=== PATIENT | male | born 1960 | race Caucasian/White ===

== ENCOUNTER → 2024-03-23 | Outpatient (CLI) | payer OTHER, SELFPAY ==
[2024-03-23 14:33] LABS: Basophils # (Auto) 0.1 Thou/mm3 (0.0-0.2); Basophils % (Auto) 1 % (0-2.5); Eosinophils # (Auto) 0.2 Thou/mm3 (0.0-0.5); Eosinophils % (Auto) 2 % (0-10); Hematocrit 43.1 % (41.0-53.0); Hemoglobin 14.9 g/dL (13.5-16.0); Immature Granulocytes % (Auto) 0 % (0-0); Immature Granulocytes Auto 0.01 Thou/mm3 (0.00-0.00); Lymphocytes # (Auto) 1.6 Thou/mm3 (1.0-4.8); Lymphocytes % (Auto) 19 % (10-50); Mean Corpuscular HGB Conc 34.6 g/dl (31.0-37.0); Mean Corpuscular Hemoglobin 29.5 pg (25.0-35.0); Mean Corpuscular Volume 85 fL (80-100); Monocytes # (Auto) 0.9 Thou/mm3 (0.0-0.8); Monocytes % (Auto) 10 % (0-12); Neutrophils # (Auto) 5.8 Thou/mm3 (1.8-7.7); Neutrophils % (Auto) 68 % (37-80); Nucleated Red Blood Cell % 0 /100 WBC (0); Platelet Count 311 Thou/mm3 (140-440); RDW Standard Deviation 39.4 fL (35.1-43.9); Red Blood Count 5.05 Miln/mm3 (4.50-5.90); White Blood Count 8.5 Thou/mm3 (3.8-10.6)
[2024-03-23 15:01] LABS: Alanine Aminotransferase 30 U/L (10-49); Albumin, Serum 4.9 gm/dL (3.4-4.8); Albumin/Globulin Ratio 1.8 (1.2-2.2); Alkaline Phosphatase 91 U/L (46-116); Anion Gap 6 (7-16); Aspartate Amino Transferase 34 U/L (0-34); BUN/Creatinine Ratio 26 Ratio (12-20); Bilirubin,Total 0.9 mg/dL (0.3-1.2); Blood Urea Nitrogen 36 mg/dL (9-23); Calcium 10.3 mg/dL (8.3-10.6); Calcium (Corrected) 10.3 mg/dL (8.5-10.1); Carbon Dioxide 33.7 mMol/L (20.0-31.0); Chloride 96 mMol/L (98-107); Creatinine (Component) 1.4 mg/dL (0.6-1.3); Globulin 2.7 gm/dL (2.3-3.5); Glucose 83 mg/dL (74-106); Osmolality,Calculated 279 (275-295); Potassium 3.3 mMol/L (3.4-5.1); Sodium 136 mMol/L (136-145); Total Protein 7.6 gm/dL (5.7-8.2); eGFR 56 See Note
== END | disposition home or self-care (01) ==
LOC: COPL 13:40
PROVIDERS: PCP Family Medicine; Referring Provider Specialist; Visit Provider Specialist
DX: R79.89 Other specified abnormal findings of blood chemistry (principal); R53.1 Weakness; R11.2 Nausea with vomiting, unspecified; R94.5 Abnormal results of liver function studies; K76.89 Other specified diseases of liver; D50.0 Iron deficiency anemia secondary to blood loss (chronic)
CPT/HCPCS: 36415; 80053; 85025

== ENCOUNTER → 2024-05-04 | Outpatient (CLI) | payer OTHER, SELFPAY ==
[2024-05-04 11:33] LABS: Basophils # (Auto) 0.1 Thou/mm3 (0.0-0.2); Basophils % (Auto) 1 % (0-2.5); Eosinophils # (Auto) 0.1 Thou/mm3 (0.0-0.5); Eosinophils % (Auto) 2 % (0-10); Hematocrit 38.1 % (41.0-53.0); Immature Granulocytes % (Auto) 0 % (0-0); Immature Granulocytes Auto 0.02 Thou/mm3 (0.00-0.00); Lymphocytes # (Auto) 1.3 Thou/mm3 (1.0-4.8); Lymphocytes % (Auto) 23 % (10-50); Mean Corpuscular HGB Conc 34.1 g/dl (31.0-37.0); Mean Corpuscular Hemoglobin 29.3 pg (25.0-35.0); Mean Corpuscular Volume 86 fL (80-100); Monocytes # (Auto) 0.6 Thou/mm3 (0.0-0.8); Monocytes % (Auto) 10 % (0-12); Neutrophils # (Auto) 3.7 Thou/mm3 (1.8-7.7); Neutrophils % (Auto) 64 % (37-80); Nucleated Red Blood Cell % 0 /100 WBC (0); Platelet Count 271 Thou/mm3 (140-440); RDW Standard Deviation 39.9 fL (35.1-43.9); Red Blood Count 4.44 Miln/mm3 (4.50-5.90); White Blood Count 5.8 Thou/mm3 (3.8-10.6)
[2024-05-04 12:26] LABS: Alanine Aminotransferase 23 U/L (10-49); Albumin, Serum 4.2 gm/dL (3.4-4.8); Albumin/Globulin Ratio 1.9 (1.2-2.2); Alkaline Phosphatase 81 U/L (46-116); Anion Gap 7 (7-16); Aspartate Amino Transferase 37 U/L (0-34); BUN/Creatinine Ratio 26 Ratio (12-20); Bilirubin,Total 0.8 mg/dL (0.3-1.2); Blood Urea Nitrogen 29 mg/dL (9-23); Calcium 9.9 mg/dL (8.3-10.6); Calcium (Corrected) 9.9 mg/dL (8.5-10.1); Carbon Dioxide 32.5 mMol/L (20.0-31.0); Chloride 98 mMol/L (98-107); Creatinine (Component) 1.1 mg/dL (0.6-1.3); Ferritin 122 ng/mL (10.5-307.3); Globulin 2.2 gm/dL (2.3-3.5); Glucose 100 mg/dL (74-106); Osmolality,Calculated 279 (275-295); Potassium 3.8 mMol/L (3.4-5.1); Sodium 137 mMol/L (136-145); Total Protein 6.4 gm/dL (5.7-8.2); eGFR > 60 See Note
[2024-05-04 12:38] LABS: Iron 118 mcg/dL (65-175)
[2024-05-04 12:43] LABS: Cardiac Risk Estimate 4.6 RATIO (4.0-6.7); Cholesterol 210 mg/dL (132-200); HDL Cholesterol 46 mg/dL (40-60); LDL Cholesterol,Calculated 146 mg/dL (0-130); Triglycerides 89 mg/dL (30-150)
== END | disposition home or self-care (01) ==
LOC: COPL 10:28
PROVIDERS: PCP Family Medicine; Referring Provider Physician Assistant; Visit Provider Physician Assistant
DX: E78.5 Hyperlipidemia, unspecified (principal); D50.9 Iron deficiency anemia, unspecified
CPT/HCPCS: 36415; 80053; 80061; 82728; 83540; 85025

== ENCOUNTER → 2024-06-25 | Outpatient (CLI) | payer OTHER, SELFPAY ==
[2024-06-25 11:27] LABS: Basophils # (Auto) 0.1 Thou/mm3 (0.0-0.2); Basophils % (Auto) 1 % (0-2.5); Eosinophils # (Auto) 0.3 Thou/mm3 (0.0-0.5); Eosinophils % (Auto) 5 % (0-10); Hematocrit 39.1 % (41.0-53.0); Hemoglobin 13.2 g/dL (13.5-16.0); Immature Granulocytes % (Auto) 0 % (0-0); Immature Granulocytes Auto 0.01 Thou/mm3 (0.00-0.00); Lymphocytes # (Auto) 1.4 Thou/mm3 (1.0-4.8); Lymphocytes % (Auto) 28 % (10-50); Mean Corpuscular HGB Conc 33.8 g/dl (31.0-37.0); Mean Corpuscular Hemoglobin 29.5 pg (25.0-35.0); Mean Corpuscular Volume 88 fL (80-100); Monocytes # (Auto) 0.7 Thou/mm3 (0.0-0.8); Monocytes % (Auto) 14 % (0-12); Neutrophils # (Auto) 2.5 Thou/mm3 (1.8-7.7); Neutrophils % (Auto) 51 % (37-80); Nucleated Red Blood Cell % 0 /100 WBC (0); Platelet Count 248 Thou/mm3 (140-440); RDW Standard Deviation 40.8 fL (35.1-43.9); Red Blood Count 4.47 Miln/mm3 (4.50-5.90); White Blood Count 4.9 Thou/mm3 (3.8-10.6)
[2024-06-25 11:38] LABS: Alanine Aminotransferase 21 U/L (10-49); Albumin, Serum 4.5 gm/dL (3.4-4.8); Albumin/Globulin Ratio 1.7 (1.2-2.2); Alkaline Phosphatase 82 U/L (46-116); Anion Gap 9 (7-16); Aspartate Amino Transferase 37 U/L (0-34); BUN/Creatinine Ratio 23 Ratio (12-20); Bilirubin,Total 0.7 mg/dL (0.3-1.2); Blood Urea Nitrogen 30 mg/dL (9-23); Calcium 10.3 mg/dL (8.3-10.6); Calcium (Corrected) 10.3 mg/dL (8.5-10.1); Chloride 97 mMol/L (98-107); Creatinine (Component) 1.3 mg/dL (0.6-1.3); Globulin 2.7 gm/dL (2.3-3.5); Glucose 106 mg/dL (74-106); Osmolality,Calculated 283 (275-295); Potassium 3.7 mMol/L (3.4-5.1); Sodium 139 mMol/L (136-145); Total Protein 7.2 gm/dL (5.7-8.2); eGFR > 60 See Note
== END | disposition home or self-care (01) ==
LOC: COPL 10:26
PROVIDERS: PCP Family Medicine; Referring Provider Specialist; Visit Provider Specialist
DX: R79.89 Other specified abnormal findings of blood chemistry (principal); D50.0 Iron deficiency anemia secondary to blood loss (chronic); K76.89 Other specified diseases of liver; R53.1 Weakness; R11.2 Nausea with vomiting, unspecified; R94.5 Abnormal results of liver function studies
CPT/HCPCS: 36415; 80053; 85025

== ENCOUNTER → 2024-08-03 | Outpatient (CLI) | payer OTHER, SELFPAY ==
[2024-08-03 08:32] LABS: Basophils # (Auto) 0.1 Thou/mm3 (0.0-0.2); Basophils % (Auto) 1 % (0-2.5); Eosinophils # (Auto) 0.2 Thou/mm3 (0.0-0.5); Eosinophils % (Auto) 3 % (0-10); Hemoglobin 14.2 g/dL (13.5-16.0); Immature Granulocytes % (Auto) 0 % (0-0); Immature Granulocytes Auto 0.02 Thou/mm3 (0.00-0.00); Lymphocytes # (Auto) 0.9 Thou/mm3 (1.0-4.8); Lymphocytes % (Auto) 17 % (10-50); Mean Corpuscular HGB Conc 34.6 g/dl (31.0-37.0); Mean Corpuscular Hemoglobin 29.6 pg (25.0-35.0); Mean Corpuscular Volume 86 fL (80-100); Monocytes # (Auto) 0.6 Thou/mm3 (0.0-0.8); Monocytes % (Auto) 12 % (0-12); Neutrophils # (Auto) 3.6 Thou/mm3 (1.8-7.7); Neutrophils % (Auto) 67 % (37-80); Nucleated Red Blood Cell % 0 /100 WBC (0); Platelet Count 277 Thou/mm3 (140-440); RDW Standard Deviation 38.6 fL (35.1-43.9); Red Blood Count 4.79 Miln/mm3 (4.50-5.90); White Blood Count 5.3 Thou/mm3 (3.8-10.6)
[2024-08-03 08:47] LABS: Ferritin 124 ng/mL (10.5-307.3); Iron 77 mcg/dL (65-175)
[2024-08-03 08:53] LABS: Alanine Aminotransferase 21 U/L (10-49); Albumin, Serum 4.2 gm/dL (3.4-4.8); Albumin/Globulin Ratio 1.6 (1.2-2.2); Alkaline Phosphatase 76 U/L (46-116); Anion Gap 8 (7-16); Aspartate Amino Transferase 36 U/L (0-34); BUN/Creatinine Ratio 25 Ratio (12-20); Bilirubin,Total 0.9 mg/dL (0.3-1.2); Blood Urea Nitrogen 30 mg/dL (9-23); Calcium 9.3 mg/dL (8.3-10.6); Calcium (Corrected) 9.3 mg/dL (8.5-10.1); Cardiac Risk Estimate 4.7 RATIO (4.0-6.7); Chloride 91 mMol/L (98-107); Cholesterol 207 mg/dL (132-200); Creatinine (Component) 1.2 mg/dL (0.6-1.3); Globulin 2.6 gm/dL (2.3-3.5); Glucose 120 mg/dL (74-106); HDL Cholesterol 44 mg/dL (40-60); LDL Cholesterol,Calculated 149 mg/dL (0-130); Osmolality,Calculated 271 (275-295); Potassium 3.6 mMol/L (3.4-5.1); Sodium 132 mMol/L (136-145); Total Protein 6.8 gm/dL (5.7-8.2); Triglycerides 69 mg/dL (30-150); eGFR > 60 See Note
== END | disposition home or self-care (01) ==
LOC: COPL 07:00
PROVIDERS: PCP Family Medicine; Referring Provider Physician Assistant; Visit Provider Physician Assistant
DX: E78.5 Hyperlipidemia, unspecified (principal); D50.9 Iron deficiency anemia, unspecified
CPT/HCPCS: 36415; 80053; 80061; 82728; 83540; 85025

== ENCOUNTER → 2024-10-05 | Outpatient (CLI) | payer OTHER, SELFPAY ==
[2024-10-05 11:22] LABS: Basophils # (Auto) 0.1 Thou/mm3 (0.0-0.2); Basophils % (Auto) 1 % (0-2.5); Eosinophils # (Auto) 0.2 Thou/mm3 (0.0-0.5); Eosinophils % (Auto) 4 % (0-10); Hematocrit 35.4 % (41.0-53.0); Hemoglobin 12.6 g/dL (13.5-16.0); Immature Granulocytes % (Auto) 0 % (0-0); Immature Granulocytes Auto 0.01 Thou/mm3 (0.00-0.00); Lymphocytes # (Auto) 1.2 Thou/mm3 (1.0-4.8); Lymphocytes % (Auto) 23 % (10-50); Mean Corpuscular HGB Conc 35.6 g/dl (31.0-37.0); Mean Corpuscular Hemoglobin 29.9 pg (25.0-35.0); Mean Corpuscular Volume 84 fL (80-100); Monocytes # (Auto) 0.7 Thou/mm3 (0.0-0.8); Monocytes % (Auto) 13 % (0-12); Neutrophils # (Auto) 3.1 Thou/mm3 (1.8-7.7); Neutrophils % (Auto) 59 % (37-80); Nucleated Red Blood Cell % 0 /100 WBC (0); Platelet Count 253 Thou/mm3 (140-440); RDW Standard Deviation 38.8 fL (35.1-43.9); Red Blood Count 4.21 Miln/mm3 (4.50-5.90); White Blood Count 5.2 Thou/mm3 (3.8-10.6)
[2024-10-05 11:32] LABS: Alanine Aminotransferase 26 U/L (10-49); Albumin, Serum 4.4 gm/dL (3.4-4.8); Albumin/Globulin Ratio 2.1 (1.2-2.2); Alkaline Phosphatase 87 U/L (46-116); Anion Gap 10 (7-16); Aspartate Amino Transferase 66 U/L (0-34); BUN/Creatinine Ratio 23 Ratio (12-20); Bilirubin,Total 0.7 mg/dL (0.3-1.2); Blood Urea Nitrogen 30 mg/dL (9-23); Calcium 9.4 mg/dL (8.3-10.6); Calcium (Corrected) 9.4 mg/dL (8.5-10.1); Carbon Dioxide 30.9 mMol/L (20.0-31.0); Chloride 91 mMol/L (98-107); Creatinine (Component) 1.3 mg/dL (0.6-1.3); Globulin 2.1 gm/dL (2.3-3.5); Glucose 153 mg/dL (74-106); Osmolality,Calculated 273 (275-295); Potassium 2.8 mMol/L (3.4-5.1); Sodium 132 mMol/L (136-145); Total Protein 6.5 gm/dL (5.7-8.2); eGFR > 60 See Note
== END | disposition home or self-care (01) ==
LOC: COPL 10:07
PROVIDERS: PCP Family Medicine; Referring Provider Specialist; Visit Provider Specialist
DX: R79.89 Other specified abnormal findings of blood chemistry (principal); K76.89 Other specified diseases of liver; D50.0 Iron deficiency anemia secondary to blood loss (chronic); R53.1 Weakness; R11.2 Nausea with vomiting, unspecified; R94.5 Abnormal results of liver function studies
CPT/HCPCS: 36415; 80053; 85025

== ENCOUNTER → 2024-12-10 | Outpatient (CLI) | payer MEDICARE, OTHER, SELFPAY ==
[2024-12-10 12:08] LABS: Basophils # (Auto) 0.1 Thou/mm3 (0.0-0.2); Basophils % (Auto) 1 % (0-2.5); Eosinophils # (Auto) 0.2 Thou/mm3 (0.0-0.5); Eosinophils % (Auto) 4 % (0-10); Hematocrit 36.8 % (41.0-53.0); Hemoglobin 12.5 g/dL (13.5-16.0); Immature Granulocytes Auto 0.01 Thou/mm3 (0.00-0.00); Lymphocytes # (Auto) 1.4 Thou/mm3 (1.0-4.8); Lymphocytes % (Auto) 29 % (10-50); Mean Corpuscular HGB Conc 34.0 g/dl (31.0-37.0); Mean Corpuscular Hemoglobin 29.9 pg (25.0-35.0); Mean Corpuscular Volume 88 fL (80-100); Monocytes # (Auto) 0.6 Thou/mm3 (0.0-0.8); Monocytes % (Auto) 13 % (0-12); Neutrophils # (Auto) 2.6 Thou/mm3 (1.8-7.7); Neutrophils % (Auto) 53 % (37-80); Nucleated Red Blood Cell # 0.00 Thou/mm3 (0.00-0.00); Nucleated Red Blood Cell % 0 /100 WBC (0); Platelet Count 244 Thou/mm3 (140-440); RDW Standard Deviation 41.2 fL (35.1-43.9); Red Blood Count 4.18 Miln/mm3 (4.50-5.90); White Blood Count 4.9 Thou/mm3 (3.8-10.6)
[2024-12-10 12:28] LABS: Alanine Aminotransferase 13 U/L (10-49); Albumin, Serum 4.2 gm/dL (3.4-4.8); Albumin/Globulin Ratio 1.9 (1.2-2.2); Alkaline Phosphatase 81 U/L (46-116); Anion Gap 8 (7-16); Aspartate Amino Transferase 30 U/L (0-34); BUN/Creatinine Ratio 19 Ratio (12-20); Bilirubin,Total 0.5 mg/dL (0.3-1.2); Blood Urea Nitrogen 23 mg/dL (9-23); Calcium 9.4 mg/dL (8.3-10.6); Calcium (Corrected) 9.4 mg/dL (8.5-10.1); Carbon Dioxide 33.5 mMol/L (20.0-31.0); Chloride 98 mMol/L (98-107); Creatinine (Component) 1.2 mg/dL (0.6-1.3); Globulin 2.2 gm/dL (2.3-3.5); Glucose 97 mg/dL (74-106); Osmolality,Calculated 281 (275-295); Potassium 3.0 mMol/L (3.4-5.1); Sodium 139 mMol/L (136-145); Total Protein 6.4 gm/dL (5.7-8.2); eGFR > 60 See Note
== END | disposition home or self-care (01) ==
PROVIDERS: PCP Family Medicine; Referring Provider Specialist; Visit Provider Specialist
DX: R79.89 Other specified abnormal findings of blood chemistry (principal); D50.0 Iron deficiency anemia secondary to blood loss (chronic); R53.1 Weakness; R94.5 Abnormal results of liver function studies; R11.2 Nausea with vomiting, unspecified; K76.89 Other specified diseases of liver
CPT/HCPCS: 36415; 80053; 85025

== ENCOUNTER → 2024-12-11 | Outpatient (CLI) | payer MEDICARE, OTHER, SELFPAY ==
[2024-12-11 09:41] LABS: Glucose Estimated Average 114 mg/dL (80-131); Hemoglobin A1C 5.6 % Hgb (4.8-6.0)
[2024-12-11 09:50] LABS: Alanine Aminotransferase 14 U/L (10-49); Albumin, Serum 4.5 gm/dL (3.4-4.8); Albumin/Globulin Ratio 1.9 (1.2-2.2); Alkaline Phosphatase 71 U/L (46-116); Anion Gap 8 (7-16); Aspartate Amino Transferase 35 U/L (0-34); BUN/Creatinine Ratio 23 Ratio (12-20); Bilirubin,Total 1.1 mg/dL (0.3-1.2); Blood Urea Nitrogen 27 mg/dL (9-23); Calcium 9.7 mg/dL (8.3-10.6); Calcium (Corrected) 9.7 mg/dL (8.5-10.1); Carbon Dioxide 32.9 mMol/L (20.0-31.0); Cardiac Risk Estimate 4.5 RATIO (4.0-6.7); Chloride 97 mMol/L (98-107); Cholesterol 200 mg/dL (132-200); Creatinine (Component) 1.2 mg/dL (0.6-1.3); Globulin 2.4 gm/dL (2.3-3.5); Glucose 100 mg/dL (74-106); HDL Cholesterol 44 mg/dL (40-60); LDL Cholesterol,Calculated 136 mg/dL (0-130); Osmolality,Calculated 280 (275-295); Potassium 3.0 mMol/L (3.4-5.1); Sodium 138 mMol/L (136-145); Total Protein 6.9 gm/dL (5.7-8.2); Triglycerides 98 mg/dL (30-150); eGFR > 60 See Note
== END | disposition home or self-care (01) ==
LOC: COPL 08:37
PROVIDERS: PCP Family Medicine; Referring Provider Physician Assistant; Visit Provider Physician Assistant
DX: E78.5 Hyperlipidemia, unspecified (principal); R73.01 Impaired fasting glucose
CPT/HCPCS: 36415; 80053; 80061; 83036

== ENCOUNTER → 2024-12-20 | Outpatient (CLI) | payer MEDICARE, OTHER, SELFPAY ==
[2024-12-20 14:30] LABS: Alanine Aminotransferase 17 U/L (10-49); Albumin, Serum 4.2 gm/dL (3.4-4.8); Albumin/Globulin Ratio 1.8 (1.2-2.2); Alkaline Phosphatase 77 U/L (46-116); Anion Gap 8 (7-16); Aspartate Amino Transferase 33 U/L (0-34); BUN/Creatinine Ratio 18 Ratio (12-20); Bilirubin,Total 0.6 mg/dL (0.3-1.2); Blood Urea Nitrogen 20 mg/dL (9-23); Calcium 9.8 mg/dL (8.3-10.6); Calcium (Corrected) 9.8 mg/dL (8.5-10.1); Carbon Dioxide 30.8 mMol/L (20.0-31.0); Chloride 97 mMol/L (98-107); Creatinine (Component) 1.1 mg/dL (0.6-1.3); Globulin 2.3 gm/dL (2.3-3.5); Glucose 111 mg/dL (74-106); Osmolality,Calculated 275 (275-295); Potassium 3.3 mMol/L (3.4-5.1); Sodium 136 mMol/L (136-145); Total Protein 6.5 gm/dL (5.7-8.2); eGFR > 60 See Note
== END | disposition home or self-care (01) ==
LOC: COPL 13:33
PROVIDERS: PCP Family Medicine; Referring Provider Physician Assistant; Visit Provider Physician Assistant
DX: E87.6 Hypokalemia (principal)
CPT/HCPCS: 36415; 80053

== ENCOUNTER → 2025-02-19 | Outpatient (CLI) | payer MEDICARE, OTHER, SELFPAY ==
[2025-02-19 17:33] LABS: Basophils # (Auto) 0.1 Thou/mm3 (0.0-0.2); Basophils % (Auto) 1 % (0-2.5); Eosinophils # (Auto) 0.2 Thou/mm3 (0.0-0.5); Eosinophils % (Auto) 2 % (0-10); Hematocrit 36.4 % (41.0-53.0); Hemoglobin 12.3 g/dL (13.5-16.0); Immature Granulocytes Auto 0.03 Thou/mm3 (0.00-0.00); Lymphocytes # (Auto) 1.1 Thou/mm3 (1.0-4.8); Lymphocytes % (Auto) 15 % (10-50); Mean Corpuscular HGB Conc 33.8 g/dl (31.0-37.0); Mean Corpuscular Hemoglobin 29.3 pg (25.0-35.0); Mean Corpuscular Volume 87 fL (80-100); Monocytes # (Auto) 0.9 Thou/mm3 (0.0-0.8); Monocytes % (Auto) 11 % (0-12); Neutrophils # (Auto) 5.5 Thou/mm3 (1.8-7.7); Neutrophils % (Auto) 71 % (37-80); Nucleated Red Blood Cell # 0.00 Thou/mm3 (0.00-0.00); Nucleated Red Blood Cell % 0 /100 WBC (0); Platelet Count 228 Thou/mm3 (140-440); RDW Standard Deviation 40.2 fL (35.1-43.9); Red Blood Count 4.20 Miln/mm3 (4.50-5.90); White Blood Count 7.7 Thou/mm3 (3.8-10.6)
[2025-02-19 17:43] LABS: Alanine Aminotransferase 23 U/L (10-49); Albumin, Serum 4.5 gm/dL (3.4-4.8); Albumin/Globulin Ratio 2.1 (1.2-2.2); Alkaline Phosphatase 87 U/L (46-116); Anion Gap 8 (7-16); Aspartate Amino Transferase 38 U/L (0-34); BUN/Creatinine Ratio 18 Ratio (12-20); Bilirubin,Total 0.7 mg/dL (0.3-1.2); Blood Urea Nitrogen 18 mg/dL (9-23); Calcium 9.2 mg/dL (8.3-10.6); Calcium (Corrected) 9.2 mg/dL (8.5-10.1); Carbon Dioxide 34.0 mMol/L (20.0-31.0); Chloride 98 mMol/L (98-107); Creatinine (Component) 1.0 mg/dL (0.6-1.3); Globulin 2.1 gm/dL (2.3-3.5); Glucose 94 mg/dL (74-106); Osmolality,Calculated 281 (275-295); Potassium 3.3 mMol/L (3.4-5.1); Sodium 140 mMol/L (136-145); Total Protein 6.6 gm/dL (5.7-8.2); eGFR > 60 See Note
== END | disposition home or self-care (01) ==
LOC: COPL 16:24
PROVIDERS: PCP Family Medicine; Referring Provider Specialist; Visit Provider Specialist
DX: E78.9 Disorder of lipoprotein metabolism, unspecified (principal)
CPT/HCPCS: 36415; 80053; 85025

== ENCOUNTER → 2025-04-22 | Outpatient (CLI) | payer MEDICARE, OTHER, SELFPAY ==
--- NOTE | 2025-04-22 08:45 | XR_ITS ---
Examination: Abdomen sonogram, complete Date and time of exam: April 22, 2025, 0843 hours INDICATIONS: Nicotine dependence 20 years, history cholecystectomy, history abdominal pain months. Technique: Multiple real-time grayscale transabdominal sonographic images of the abdomen have been obtained. Findings: Absent gallbladder Common bile duct 0.2 cm no stones Pancreatic head 1.8 cm Aorta not enlarged. Liver 14.6 cm fatty infiltration Normal hepatopetal portal venous flow Patent IVC Right kidney 10.0 cm renal cortex 1.4 cm Left kidney 10.0 cm renal cortex 1.4 cm Mild renal scarring Spleen 10.1 cm IMPRESSION: Absent gallbladder Normal common bile duct Liver normal size no focal liver lesions Mild bilateral renal scarring
== END | disposition home or self-care (01) ==
LOC: CDIM 08:24
PROVIDERS: PCP Family Medicine; Referring Provider Physician Assistant; Visit Provider Physician Assistant
DX: N28.89 Other specified disorders of kidney and ureter (principal); Z90.49 Acquired absence of other specified parts of digestive tract; Z87.891 Personal history of nicotine dependence
CPT/HCPCS: 76700

== ENCOUNTER → 2025-04-29 | Outpatient (CLI) | payer MEDICARE, OTHER, SELFPAY ==
[2025-04-29 09:35] LABS: Basophils # (Auto) 0.1 Thou/mm3 (0.0-0.2); Basophils % (Auto) 1 % (0-2.5); Eosinophils # (Auto) 0.1 Thou/mm3 (0.0-0.5); Eosinophils % (Auto) 3 % (0-10); Hematocrit 38.6 % (41.0-53.0); Hemoglobin 13.1 g/dL (13.5-16.0); Immature Granulocytes Auto 0.01 Thou/mm3 (0.00-0.00); Lymphocytes # (Auto) 1.1 Thou/mm3 (1.0-4.8); Lymphocytes % (Auto) 24 % (10-50); Mean Corpuscular HGB Conc 33.9 g/dl (31.0-37.0); Mean Corpuscular Hemoglobin 29.3 pg (25.0-35.0); Mean Corpuscular Volume 86 fL (80-100); Monocytes # (Auto) 0.6 Thou/mm3 (0.0-0.8); Monocytes % (Auto) 12 % (0-12); Neutrophils # (Auto) 2.7 Thou/mm3 (1.8-7.7); Neutrophils % (Auto) 60 % (37-80); Nucleated Red Blood Cell # 0.00 Thou/mm3 (0.00-0.00); Nucleated Red Blood Cell % 0 /100 WBC (0); Platelet Count 264 Thou/mm3 (140-440); RDW Standard Deviation 41.7 fL (35.1-43.9); Red Blood Count 4.47 Miln/mm3 (4.50-5.90); White Blood Count 4.5 Thou/mm3 (3.8-10.6)
[2025-04-29 09:57] LABS: Ferritin 138 ng/mL (10.5-307.3); Iron 70 mcg/dL (65-175); Vitamin B12 892 pg/mL (211-911); Vitamin D 25 Hydroxy Total 52.8 ng/mL (7.3-40.2)
[2025-04-29 10:00] LABS: Alanine Aminotransferase 20 U/L (10-49); Albumin, Serum 4.5 gm/dL (3.4-4.8); Albumin/Globulin Ratio 1.7 (1.2-2.2); Alkaline Phosphatase 71 U/L (46-116); Anion Gap 11 (7-16); Aspartate Amino Transferase 41 U/L (0-34); BUN/Creatinine Ratio 21 Ratio (12-20); Bilirubin,Total 0.7 mg/dL (0.3-1.2); Blood Urea Nitrogen 21 mg/dL (9-23); Calcium 9.3 mg/dL (8.3-10.6); Calcium (Corrected) 9.3 mg/dL (8.5-10.1); Carbon Dioxide 34.0 mMol/L (20.0-31.0); Cardiac Risk Estimate 4.1 RATIO (4.0-6.7); Chloride 96 mMol/L (98-107); Cholesterol 204 mg/dL (132-200); Creatinine (Component) 1.0 mg/dL (0.6-1.3); Globulin 2.7 gm/dL (2.3-3.5); Glucose 98 mg/dL (74-106); HDL Cholesterol 50 mg/dL (40-60); LDL Cholesterol,Calculated 135 mg/dL (0-130); Osmolality,Calculated 284 (275-295); Potassium 3.0 mMol/L (3.4-5.1); Sodium 141 mMol/L (136-145); Thyroid Stimulating Hormone 1.22 uIU/mL (0.55-4.78); Total Protein 7.2 gm/dL (5.7-8.2); Triglycerides 97 mg/dL (30-150); eGFR > 60 See Note
[2025-04-29 10:37] LABS: Collection Type, Urine Clean Catch; RBC,Urine 0 /hpf (0-3); WBC,Urine 0 /hpf (0-5)
[2025-04-29 11:54] LABS: Bacteria,Urine Rare; Bilirubin,Urine Negative (Negative); Blood,Urine Negative (Negative); Clarity,Urine Clear (Clear/Hazy); Color,Urine Yellow (Lt Yel-Yel); Culture Indicated,Urine Not Indicated; Glucose, Urine Negative (Negative); Ketones,Urine Negative (Negative); Leukocyte Esterase,Urine Negative (Negative); Nitrite,Urine Negative (Negative); PH,Urine 7.0 (5.0-7.0); Protein,Urine Negative (Neg - Trace); Specific Gravity,Urine 1.026 (1.001-1.035); Squamous Epithelial Cell,Urine < 1 /hpf (0-5); Urobilinogen,Urine Negative mg/dL (0.0-1.0)
== END | disposition home or self-care (01) ==
LOC: COPL 08:44
PROVIDERS: PCP Family Medicine; Referring Provider Physician Assistant; Visit Provider Physician Assistant
DX: E55.9 Vitamin D deficiency, unspecified (principal); D50.9 Iron deficiency anemia, unspecified; E78.5 Hyperlipidemia, unspecified; Z12.5 Encounter for screening for malignant neoplasm of prostate
CPT/HCPCS: 36415; 80053; 80061; 81001; 82306; 82607; 82728; 83036; 83540; 84153; 84443; 85025